=== PATIENT | female | born 1955 | race Caucasian/White ===

== ENCOUNTER 2024-11-22 09:50 | Outpatient (CLI) | payer MEDICARE, SELFPAY | END 2024-11-22 09:51 | disposition home or self-care (01) | LOC: FRMREF 09:57 | PROVIDERS: Visit Provider Family Medicine | DX: E03.9 Hypothyroidism, unspecified (principal); I10 Essential (primary) hypertension; E78.5 Hyperlipidemia, unspecified | CPT/HCPCS: 80053; 80061; 84443 ==

== ENCOUNTER 2025-03-05 07:27 | Outpatient (CLI) | payer MEDICARE, SELFPAY | END 2025-03-05 07:28 | disposition home or self-care (01) | PROVIDERS: PCP Family Medicine; Visit Provider Family Medicine | DX: Z00.00 Encounter for general adult medical examination without abnormal findings (principal); E03.9 Hypothyroidism, unspecified; Z13.6 Encounter for screening for cardiovascular disorders; G62.9 Polyneuropathy, unspecified | CPT/HCPCS: 80053; 80061; 84443; 86038; 86140; 86431 ==